=== PATIENT | female | born 1985 | race Caucasian/White ===

== ENCOUNTER 2024-03-08 12:45 | Emergency (ER) | payer OTHER ==
[~2024-03-08] VITALS: Ht 162.5 cm; Wt 80.7 kg
[~2024-03-08 12:45] MED LIST: VICODIN ES 7501 TAB PO
[2024-03-08 13:25] VITALS: BP 126/68
[2024-03-08] MEDS ORDERED: ASPIRIN81 M1 PO (13:26)
[2024-03-08] MEDS ORDERED: MIXED AMPHETAMI20 MG PO (13:26)
[2024-03-08] MEDS ORDERED: SERTRALINE HYD100 MG PO (13:26)
[2024-03-08] MEDS ORDERED: ALBUTEROL HFA 90 MCG (13:26)
== END 2024-03-08 15:10 | disposition home or self-care (01) ==
LOC: ED 12:45
DX: I80.02 Phlebitis and thrombophlebitis of superficial vessels of left lower extremity (principal)